=== PATIENT | female | born 1985 | race American Indian/Alaskan Native ===

== ENCOUNTER 2018-10-13 14:04 | Inpatient (IN) | payer OTHER ==
--- NOTE | 2018-10-13 18:42 | Ultrasound Report ---
PROCEDURE: US OB BPP WO NON-STRESS HISTORY: post dates FINDINGS: Real-time ultrasound of the pelvis was performed and demonstrates a live intrauterine gesta tion with cardiac activity 141 bpm. Biophysical profile was 8 of 8. IMPRESSION: Biophysical profile 8 of 8 This document is electronically signed by Jeff Watson MD., October 13 2018 06:41:12 PM ET
[2018-10-13] MEDS ORDERED: MINERAL OIL PO PRN (19:42)
[2018-10-13] MEDS ORDERED: BRETHINE IVP PRN (19:42)
[2018-10-13] MEDS ORDERED: BRETHINE SUB-Q PRN (19:42)
[2018-10-13] MEDS ORDERED: XYLOCAINE 2% INFILTRATI ONE (19:42)
[2018-10-13] MEDS ORDERED: SUBLIMAZE IV PRN (19:57)
[2018-10-13] MEDS ORDERED: ZOFRAN IV PRN (19:57)
[2018-10-13] MEDS ORDERED: LACTATED RINGERS 1,000 ML IV SCH (20:00)
[2018-10-13] MEDS ORDERED: PITOCin/NS 20 UNIT/1000ML DRIP 20 UNITS/1,000 ML BAG IV SCH (20:00)
[2018-10-13] MEDS ORDERED: STADOL IV PRN (20:05)
[2018-10-13 21:12] LABS: Hematocrit 35.8 % (30.3-42.9); Hemoglobin 11.8 gm/dl (10.1-14.3); Mean Corpuscular HGB Conc 33 % (30-34); Mean Corpuscular Volume 94 fl (79-97); Red Cell Distribution Width 13.5 % (13.2-15.2)
[2018-10-13 21:18] LABS: Platelet Count 205 K/mm3 (140-440)
--- NOTE | 2018-10-13 21:19 | History and Physical Report ---
History of Present Illness Date of examination: 10/13/18 Date of admission: 10/13/18 20:11 Chief complaint: NRNST in office, sent to [facility] for BPP History of present illness: Menstrual History Regularity: regular Menses every: 30 days Duration: 7 LMP: 12/20/2017 LMP reliability: month known LMP character: french tutor test type: urine test BC at conception: none Planned ? no EDC Calculations EDC Confirmation: 10/07/2018 Gestational Age: 18 6/7 weeks Past History : 4 Premature Births: 1 Living Children: 1 Elect. Ab: 2 # 1 Delivery date: 2009 Delivery type: EAB # 2 Delivery date: 2010 Delivery type: EAB # 3 Delivery date: 04/15/2017 Weeks Gestation: 23 labor: yes Delivery type: Delivery location: [place], [place] Infant Sex: Female weight: 1-3 Comments: Twin gestation. Presented to a hospital in [facility] for contractions, 2 days later delivered twin A(1#1.5oz) demise. She was transfered to [facility] and delivered twin B # 4 Delivery date: 04/10/2017 Weeks Gestation: 23 labor: yes Delivery type: Delivery location: [facility] weight: 1-1.5 Comments: Twin gestation demise, see previous note Past Medical History: Negative Past Medical History Past Surgical History: Knee Arthroscopy (2009)(R) Past Medical History Surgery (Non-online advertising analyst): Knee Arthroscopy (2009)(R) Abnormal PAP: negative Social Hx: Patient is Smoking History: Patient has never smoked. Infection History Hx of STD: none Varicella/Chicken Pox Status: Previous Disease TB Risk: no Genetic History Congenital Heart Defect: Mom: no Dad: no Catia Disease: Mom: no Dad: no Thalassemia Mom: no Dad: no Neural Tube Defect Mom: no Dad: no Down's Syndrome Mom: no Dad: no Emery-Sachs Mom: no Dad: no Sickle Cell Disease/Trait Mom: no Dad: no Hemophilia Mom: no Dad: no Muscular Dystrophy Mom: no Dad: no Cystic Fibrosis Mom: no Dad: no [place] Chorea Mom: no Dad: no Mental Retardation Mom: no Dad: no Fragile X Mom: no Dad: no Other Genetic/Chromosomal Disorder Mom: no Dad: no Child w/other defect Mom: no Dad: no Enviromental Exposures Enviromental Exposures Reviewed Xray Exposure: no Medication, drug, or alcohol use since LMP: no Chemical/Other Exposure: no Exposure to Cat Liter: no Hx of Parvovirus (Fifth Disease): no Occupational Exposure to Children: none Active Medications (reviewed today): None Current Allergies (reviewed today): No known allergies Past History Past Medical History: other (see hpi) Past Surgical History: other (see hpi) 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) Family/Genetic History: other (see hpi) Social history: other (see hpi) - Obstetrical History : 4 Medications and Allergies Allergies Allergy/AdvReac Type Severity Reaction Status Date / Time No Known Allergies Allergy Verified 10/13/18 15:28 Active Meds: Active Medications Butorphanol Tartrate (Stadol) 2 mg IV Q2H PRN PRN Reason: Pain , Severe (7-10) Last Admin: 10/13/18 21:15 Dose: 2 mg Documented by: Ephedrine Sulfate (Ephedrine Sulfate) 10 mg IV Q2M PRN PRN Reason: Hypotension Fentanyl (Sublimaze) 100 mcg IV Q2H PRN PRN Reason: Labor Pain Lactated Ringer's (Lactated Ringers) 1,000 mls @ 125 mls/hr IV DIRECT STEPHANIE Last Admin: 10/13/18 21:17 Dose: 125 mls/hr Documented by: Oxytocin/Sodium Chloride (Pitocin/Ns 20 Unit/1000ml Drip) 20 units in 1,000 mls @ 125 mls/hr IV DIRECT STEPHANIE Mineral Oil (Mineral Oil) 30 ml PO QHS PRN PRN Reason: Constipation Ondansetron HCl (Zofran) 4 mg IV Q8H PRN PRN Reason: Nausea And Vomiting Terbutaline Sulfate (Brethine) 0.25 mg SUB-Q ONCE PRN PRN Reason: Hyperstimulation/Hypertonicity Terbutaline Sulfate (Brethine) 0.25 mg IVP ONCE PRN PRN Reason: Hyperstimulation/Hypertonicity Review of Systems All systems: negative (contractions every 5 minutes, 6 on pain scale. Denies LOF, Vaginal bleeding. +FM) - Vital Signs Vital signs: Vital Signs Pulse BP 98 H 123/65 10/13/18 15:20 10/13/18 15:20 Temp Pulse Resp BP Pulse Ox 98.8 F 98 H 24 123/65 10/13/18 15:30 10/13/18 15:30 10/13/18 21:15 10/13/18 15:30 - Physical Exam Breasts: Cardiovascular: Regular rate, Normal S1, Normal S2 Abdomen: Positive: normal appearance, soft, normal bowel sounds. Negative: distention, tenderness Genitourinary (Female): Positive: normal external genitalia Vulva: both: normal Vagina: Positive: normal moisture. Negative: discharge Cervix: Negative: lesion, discharge Uterus: Positive: normal size, normal contour Adnexa: both: normal Anus/Rectum: Positive: normal perianal skin, heme negative. Negative: rectal mass, hemorrhoids Extremities: Positive: normal Deep Tendon Reflex Grade: Normal +2 - Obstetrical FHR: auscultation normal, category 1 Uterine Contraction Monitor Mode: External Cervical Dilatation: 3.5 Cervical Effacement Percentage: 100 station: -2 Uterine Contraction Frequency (min): 4-5 Uterine Contraction Duration: 60-80 Uterine Contraction Pattern: Regular Uterine Tone Measurement Phase: Contraction Uterine Contraction Intensity: Moderate Results Result Diagrams: 10/13/18 20:50 Abnormal lab results 10/13/18 Range/Units 20:50 WBC 15.3 H (4.5-11.0) K/mm3 All other labs normal. Assessment and Plan 33 y.o L1 IUP at 40w6d sent from office for NRNST in office, to have BPP done at [facility]. BPP 8/8, NST reactive. SVE was 1cm on arrival, changed to 3.5/100/-2. Contractions q4-5 minutes, palpating moderate. GBS negative. Routine admission orders placed. Patient requests epidural, may receive IV pain management prior to epidural placement. Category [address] Ugalde aware of admission. Anticipate .
[2018-10-13] MEDS ORDERED: MARCAINE 0.25% INFILTRATI ONE (22:57)
[2018-10-13] MEDS ORDERED: NARCAN 2 MG/2 ML IV PRN (22:57)
--- NOTE | 2018-10-13 22:59 | Anesthesia Consultation ---
Anesthesia Consult and Med Hx - Airway Anesthetic Teeth Evaluation: Good ROM Head & Neck: Adequate Mental/Hyoid Distance: Adequate Mallampati Class: Class II Intubation Access Assessment: Probably Good - Pulmonary Exam CTA: Yes - Cardiac Exam Cardiac Exam: RRR - Pre-Operative Health Status ASA Pre-Surgery Classification: ASA2 Proposed Anesthetic Plan: Epidural - Pulmonary Hx Smoking: No Hx Asthma: No Hx Respiratory Symptoms: No SOB: No COPD: No Hx Pneumonia: No Hx Sleep Apnea: No - Cardiovascular System Hx Hypertension: No Hx Coronary Artery Disease: No - Central Nervous System Hx Seizures: No Hx Psychiatric Problems: No - Endocrine Hx Renal Disease: No Hx End Stage Renal Disease: No Hx Hypothyroidism: No Hx Hyperthyroidism: No - Hematic Hx Anemia: No Hx Sickle Cell Disease: No - Other Systems Hx Alcohol Use: No
--- NOTE | 2018-10-13 22:59 | Anesthesia Day of Surgery ---
Anesthesia Day of Surgery - Day of Surgery Patient Examined: Yes Patient H&P Reviewed: Yes Patient is NPO: Yes Beta Blockers: No Cardiac Clearance: No Pulmonary Clearance: No Piero's Test: N/A
[2018-10-13] MEDS ORDERED: fentaNYL-BUPIV 2 MCG/ML-0.125% 200 MCG/100 ML BAG EPIDURAL SCH (23:00)
[2018-10-13] MEDS ORDERED: NACL 0.9% 1000 ML 1,000 ML ONE (23:55)
--- NOTE | 2018-10-13 23:56 | Event Note ---
Date: 10/13/18 Patient comfortable in bed s/p epidural placement. SVE 5.5/100/-1. DWP plan for AROM and internal monitoring to better monitor FHTs. Patient agrees to proceed. AROM clear fluid, moderate amount. FSE and IUPC placed without difficulty. Will continue to monitor. Anticipate vaginal delivery.
[2018-10-14] MEDS ORDERED: BICITRA PO ONE (00:36)
[2018-10-14] MEDS ORDERED: PEPCID IV ONE (00:36)
[2018-10-14] MEDS ORDERED: REGLAN IV ONE (00:36)
--- NOTE | 2018-10-14 00:36 | Event Note ---
Date: 10/14/18 Post epidural, patient is hypotensive. RN giving PRN doses of ephedrine. BP returned to baseline. Amnioinfusion initiated via IUPC to correct variable decelerations. Multiple position changes, O2 via NRBfacemask, IV fluid bolus initiated. No resolution in heart decelerations with interventions, now noted to be late decelerations. Dr. Ugalde notified of assessment. C/s called at this time. Patient notified of plan for c/s. DWP indication for surgery, risks and benefits, encouraged questions, all questions addressed with FOC present in room. Patient and FOC agree to proceed. Consents signed. Pre op orders places and preparation for c/s began. NICU and Anesthesia notified.
[2018-10-14] MEDS ORDERED: XYLOCAINE 2%/ EPI 1:200,000 INFILTRATI ONE (01:00)
[2018-10-14] MEDS ORDERED: ANCEF/STERILE WATER 2 GM/20 ML 2 GM/20 ML SYRINGE IV NR (01:00)
[2018-10-14] MEDS ORDERED: LACTATED RINGERS 1,000 ML IV SCH (01:00)
[2018-10-14] MEDS ORDERED: DILAUDID IV PRN (01:02)
[2018-10-14] MEDS ORDERED: BENADRYL IV PRN (01:02)
[2018-10-14] MEDS ORDERED: PHENERGAN PR PRN (01:02)
[2018-10-14] MEDS ORDERED: PHENERGAN PO PRN (01:02)
[2018-10-14] MEDS ORDERED: NARCAN 0.4 MG/1 ML IV PRN ×2 (01:02→04:05)
[2018-10-14] MEDS ORDERED: ZOFRAN IV PRN ×2 (01:02→04:05)
[2018-10-14] MEDS ORDERED: ANCEF ONE (01:25)
[2018-10-14] MEDS ORDERED: NEO SYNEPHRINE/NS Syringe(OR USE) IV ONE (01:25)
[2018-10-14] MEDS ORDERED: LACTATED RINGERS 1,000 ML ONE (01:31)
[2018-10-14] MEDS ORDERED: NACL 0.9% IR ONE (01:32)
[2018-10-14] MEDS ORDERED: WATER FOR IRRIG STERILE IR ONE (01:32)
[2018-10-14] MEDS ORDERED: SUBLIMAZE ONE (01:58)
[2018-10-14] MEDS ORDERED: SODIUM CHLORIDE FLUSH SYRINGE 10 ML IV NR ×2 (02:00→04:05)
--- NOTE | 2018-10-14 02:29 | Post Anesthesia Evaluation ---
- Post Anesthesia Evaluation Patient Participated: Yes Airway Patent: Yes Stable Respiratory Function: Yes Nausea/Vomiting: No Temp > 96.8F: Yes Pain Manageable: Yes Adequeate Hydration: Yes Anesthesia Complications: No Block Receding Appropriately: Yes Patient on Ventilator: No
--- NOTE | 2018-10-14 02:46 | Operative Report ---
Operative Report Operative Report: Date of procedure: 10/14/2018 Pre-operative diagnosis: Intrauterine at 40 weeks and 6 days with non reassuring heart tracing, remote from vaginal delivery Post-operative diagnosis: Same Procedure name(s): Primary low transverse section Surgeon: Will Ugalde MD Chief Revenue Officer: Anesthesia: Epidural EBL: 600 mL Complications: None Findings: normal uterus tubes and ovaries bilaterally. Male weight 8 lbs. 9 oz. Apgars 8 at 1 minute and 9 at 5 minutes Specimen(s): None Procedure: The patient was brought to the operating room. Her epidural was dosed without any complications. She was then placed in left lateral tilt. Prepped and draped in the usual sterile manner. After testing for adequate anesthesia level, a Pfannenstiel incision was made. This incision was taken down to the fascia. The fascia was then nicked in the midline. This incision was extended out laterally with Atkinson scissors. The fascia was then sharply and bluntly from the underlying rectus muscles. The rectus muscles were bluntly and sharply . The peritoneum was then entered with the oil recovery operator's fingers. This incision was spread vertically with care not to damage the bladder below. The Fabian self-retaining tractor was then placed without any difficultyThe bladder flap was then formed sharply and bluntly with Metzenbaum scissors. A transverse incision was made in lower uterine segment. This incision was extended laterally with the operators fingers. The amniotic sac was then entered bluntly with the oil recovery operator's fingers. The was delivered from the vertex position. Bulb suction on the mother's abdomen. Cord was double clamped and cut. The infant was then passed to the nursery personnel who were in attendance. The above scores were given by the nursery personnel. The placenta was then bluntly removed. The uterus was then e xternalized and wiped clean the remaining products. The uterine incision was closed in layers. The first incision was closed in a locking manner using 0 Vicryl. This was followed by imbricating stitch also with 0 Vicryl. This closure was hemostatic. The bladder flap was copiously irrigated and found to be hemostatic. The pelvis was copiously irrigated and found to be hemostatic. The uterus was then placed back to the patient's abdomen. The retractors were removed. The rectus muscles were inspected and found to be hemostatic. The fascia was then closed in a running manner using 0 Vicryl. This incision was hemostatic irrigation Bovie. The skin was reapproximated with 4-0 Vicryl subcuticularly. The patient tolerated procedure well. Her urine was clear. The was admitted to the well baby nursery. The patient was accompanied to recovery room in good condition. Instrument count correct times 3.
[2018-10-14] MEDS ORDERED: ANUCORT-HC PR PRN (04:05)
[2018-10-14] MEDS ORDERED: MYLICON PO PRN (04:05)
[2018-10-14] MEDS ORDERED: LANSINOH TP PRN ×2 (04:05→21:11)
[2018-10-14] MEDS ORDERED: MILK OF MAGNESIA PO PRN (04:05)
[2018-10-14] MEDS ORDERED: PITOCin/NS 20 UNIT/1000ML DRIP 20 UNITS/1,000 ML BAG IV SCH (04:05)
[2018-10-14] MEDS ORDERED: D5LR 1,000 ML IV SCH (04:05)
[2018-10-14] MEDS ORDERED: TUCKS PAD TP PRN (04:05)
[2018-10-14] MEDS: TORADOL IV PRN ×2 (05:28→11:53)
[2018-10-14] MEDS: FEOSOL PO SCH (09:50)
[2018-10-14] MEDS: PRENATAL VITAMIN PO SCH (09:50)
[2018-10-14] MEDS: ANCEF/NS 1 GM/50 ML 1 GM/50 ML BAG IV SCH ×2 (15:26→21:33)
[2018-10-14 16:46] LABS: Hematocrit 30.3 % (30.3-42.9); Hemoglobin 10.2 gm/dl (10.1-14.3)
[2018-10-14] MEDS: NORCO 5/325 PO PRN (23:02)
[2018-10-15] MEDS: IBUPROFEN PO PRN ×4 (01:47→23:00)
[2018-10-15] MEDS: NORCO 5/325 PO PRN ×2 (05:26→20:09)
--- NOTE | 2018-10-15 07:26 | Progress Note ---
Assessment and Plan - Patient Problems (1) delivery delivered Onset Date: ~10/14/18 Current Visit: Yes Status: Acute Plan to address problem: resting No c/o voiced VSS FF @ umb Dressing D&I to be removed H&H stable A symptomatic Doing well s/p c/s P: continue pathway Advance as tolerated Subjective - Subjective Date of service: 10/15/18 (no c/o voiced) Principal diagnosis: Day # 1 s/p section Patient reports: appetite normal, voiding normally, ambulating normally [place]: doing well Objective - Vital Signs Latest vital signs: Vital Signs Temp Pulse Resp BP Pulse Ox 10/15/18 01:42 98.4 F 97 H 20 90/50 98 10/14/18 21:41 98.2 F 95 H 20 118/62 98 10/14/18 16:33 98.0 F 104 H 24 120/68 98 10/14/18 12:44 98.8 F 91 H 24 109/55 98 10/14/18 08:53 98.0 F 100 H 20 113/71 98 Intake and Output 10/14/18 10/15/18 10/15/18 22:59 06:59 14:59 Intake Total 50 Balance 50 Intake: IV 50 ANCEF/NS 1 GM/50 ML 1 gm 50 In 50 ml @ 100 mls/hr IV Q8H [facility] Rx#:[id number] - Exam Breasts: Present: normal Cardiovascular: Present: Regular rate Lungs: Present: Clear to auscultation Abdomen: Present: normal appearance, soft Uterus: Present: normal, firm, fundal height at umbilicus Extremities: Present: normal, edema Deep Tendon Reflex Grade: Normal +2 Incision: Present: normal, dry, intact, dressed (to be removed now)
[2018-10-15] MEDS: FEOSOL PO SCH (10:12)
[2018-10-15] MEDS: PRENATAL VITAMIN PO SCH (10:12)
[2018-10-16] MEDS: IBUPROFEN PO PRN ×2 (01:26→09:05)
[2018-10-16] MEDS: NORCO 5/325 PO PRN ×2 (01:27→09:05)
--- NOTE | 2018-10-16 08:48 | Discharge Summary ---
Providers - Providers Date of Admission: 10/13/18 20:11 Date of discharge: 10/16/18 (patient desires discharge today) Attending physician: TATY MCMANUS 10/14/18 04:05 Consult to Wallpaper Inspector [CONS] Routine Reason For Exam: Primary care physician: GAEL JEONG Hospitalization Reason for admission: labor Condition: Good Pertinent studies: post delivery H&H 10.2/30.3 Procedures: primary c/s for [facility] Hospital course: uncomplicated primary c/s and post op/ course Disposition: DC-01 TO HOME OR SELFCARE Core Measure Documentation - Palliative Care Palliative Care/ Comfort Measures: Not Applicable - Core Measures Any of the following diagnoses?: none Exam - Constitutional Vitals: Temp Pulse Resp BP Pulse Ox 98.6 F 88 20 116/70 98 10/16/18 00:10 10/16/18 00:10 10/16/18 00:10 10/16/18 00:10 10/16/18 00:10 General appearance: Present: no acute distress, well-nourished - EENT Eyes: Present: PERRL ENT: hearing intact, clear oral mucosa - Neck Neck: Present: supple, normal ROM - Respiratory Respiratory effort: normal Respiratory: bilateral: CTA - Cardiovascular Rhythm: regular Heart Sounds: Present: S1 & S2. Absent: rub, click - Extremities Extremities: pulses symmetrical, No edema Peripheral Pulses: within normal limits - Abdominal General gastrointestinal: Present: soft, non-tender, non-distended, normal bowel sounds Female genitourinary: Present: normal - Integumentary Integumentary: Present: clear, warm, dry - Musculoskeletal Musculoskeletal: gait normal, strength equal bilaterally - Psychiatric Psychiatric: appropriate mood/affect, intact judgment & insight - Neurologic Neurologic: CNII-XII intact, moves all extremities - Additional findings Additional findings: POD 2. Patient reports feeling well, no complaints. Incision is well approximated, healing well, no drainage, no s/s of infection. Fundus is firm, ML, U/2, vaginal bleeding is minimal. Patient reports pain is well controlled with PO medications. VSSAF. She reports breast feeding is going well, no breast complaints. Desires discharge today. Plan Activity: no restrictions Diet: regular Wound: open to air, keep clean and dry Follow up with: GAEL JEONG MD [Primary Care Provider] - 7 Days (Congratulations! Please call [phone] to schedule your incision check appointment in 1 week. Schedule your son's circumcision appointment in 1 week. Bring EMLA cream with you to his appointment and await further instructions for use. Please call with any questions or concerns. ) Forms: [facility] Discharge Summary Prescriptions: Docusate Sodium [Colace] 100 mg PO BID PRN #60 capsule PRN Reason: Constipation Lidocain2.5%/Prilocai2.5% [Emla] 5 gm TP ONCE #1 tube Ferrous Sulfate [Feosol 325 MG tab] 325 mg PO BID #60 tablet Ibuprofen [Motrin 800 MG tab] 800 mg PO Q6H PRN #30 tablet PRN Reason: Pain oxyCODONE /ACETAMINOPHEN [Percocet 5/325 mg] 1 - 2 tab PO Q4H PRN #20 tablet PRN Reason: Pain, Moderate
[2018-10-16] MEDS: PRENATAL VITAMIN PO SCH (09:06)
[2018-10-16] MEDS: FEOSOL PO SCH (09:06)
[2018-10-16 13:57] VITALS: BP 105/65
== END 2018-10-16 14:00 | disposition home or self-care (01) | DRG 788 ==
LOC: TRG 14:04 → LD 20:11 → OB 10-14 03:25
PROVIDERS: ADMIT Obstetrics & Gynecology; ATTEND Obstetrics & Gynecology
PROC: 10H07YZ Insertion of Other Device into Products of Conception, Via Natural or Artificial Opening (ICD-10-PCS; 2018-10-13)
PROC: 10907ZC Drainage of Amniotic Fluid, Therapeutic from Products of Conception, Via Natural or Artificial Opening (ICD-10-PCS; 2018-10-13)
PROC: 10D00Z1 Extraction of Products of Conception, Low, Open Approach (ICD-10-PCS; principal; 2018-10-14)
PROC: 3E0E7GC Introduction of Other Therapeutic Substance into Products of Conception, Via Natural or Artificial Opening (ICD-10-PCS; 2018-10-14)
DX: O76 Abnormality in fetal heart rate and rhythm complicating labor and delivery (principal); O26.53 Maternal hypotension syndrome, third trimester; Z3A.40 40 weeks gestation of pregnancy; Z37.0 Single live birth
CPT/HCPCS: 36415; 76819; 85014; 85018; 85027; 86592; 86850; 86900; 86901; G0378; A6250; J0595; J0690; J1170; J1885; J2370; J2405; J2590; J2765; J3010; J7030; J7120; J7121